=== PATIENT | female | born 2000 | race Caucasian/White ===

== ENCOUNTER 2018-08-17 13:39 | Emergency (ER) | payer OTHER ==
[~2018-08-17] VITALS: Ht 170.2 cm; Wt 51.7 kg
[2018-08-17 14:21] VITALS: BP 140/87
--- NOTE | 2018-08-17 14:31 | NUR ---
SEEN AND EXAMINED BY KRISTINA ARNETT NP.
[2018-08-17] MEDS ORDERED: LORAZEPAM 1 MG TABLET PO ONE (15:00)
[2018-08-17] MEDS ORDERED: LORAZEPAM 1 MG TABLET ONE (15:16)
--- NOTE | 2018-08-17 15:20 | NUR ---
Patient discharged to home in stable condition. Written and verbal after care instructions given. Patient verbalizes understanding of instruction.
== END 2018-08-17 15:21 | disposition home or self-care (01) ==
LOC: ER 13:45
DX: F41.9 Anxiety disorder, unspecified (principal); F17.200 Nicotine dependence, unspecified, uncomplicated